=== PATIENT | female | born 1945 | race African-American/Black ===

== ENCOUNTER 2019-10-31 08:28 | Day surgery (SDC) | payer MEDICARE, OTHER ==
[~2019-10-31] VITALS: Ht 167.6 cm; Wt 65.8 kg
[2019-10-31] MEDS ORDERED: CLOP75TA33 PO (09:47)
[2019-10-31] MEDS ORDERED: HYDR100T26 MT (09:47)
[2019-10-31] MEDS ORDERED: PRED10TA MT (09:47)
[2019-10-31] MEDS ORDERED: LOSA100T32 MT (09:47)
[2019-10-31] MEDS ORDERED: PRAV40TA58 MT (09:47)
[2019-10-31] MEDS ORDERED: ASPI-1160 MT (09:47)
[2019-10-31] MEDS ORDERED: CLON-457 PO (09:47)
[2019-10-31] MEDS ORDERED: FURO20TA4 MT (09:47)
[2019-10-31] MEDS ORDERED: LABE200T28 MT (09:47)
[2019-10-31] MEDS ORDERED: NIFE-32 MT (09:47)
[2019-10-31] MEDS ORDERED: POTA20TA82 MT (09:47)
[2019-10-31] MEDS ORDERED: IOHEXOL-300 100 ML BOTTLE ONE (10:25)
[2019-10-31] MEDS ORDERED: LIDOCAINE HCL 1% 20ML VIAL (Pyxis) INJ ONE (10:25)
[2019-10-31] MEDS ORDERED: IODIXANOL 320MG/ML 100 ML BOTTLE IV ONE (10:25)
[2019-10-31] MEDS ORDERED: MIDAZOLAM HCL 2 MG/2 ML VIAL ONE (10:42)
[2019-10-31] MEDS ORDERED: FENTANYL CITRATE/PF 50MCG/ML 2ML VIAL ONE (10:42)
[2019-10-31] MEDS ORDERED: HYDRALAZINE 20MG/ML VIAL ONE (11:39)
[2019-10-31] MEDS ORDERED: LABETALOL HCL 5MG/ML VIAL 20ML IV ONE (11:46)
[2019-10-31] MEDS ORDERED: ACETAMINOPHEN 325MG TABLET PO PRN (12:15)
[2019-10-31] MEDS ORDERED: ONDANSETRON HCL 4MG/2ML INJ IV PRN (12:15)
== END 2019-10-31 18:25 | disposition home or self-care (01) ==
LOC: CCL 08:28
PROVIDERS: ATTEND Specialist
DX: I70.213 Atherosclerosis of native arteries of extremities with intermittent claudication, bilateral legs (principal); E78.5 Hyperlipidemia, unspecified; I11.9 Hypertensive heart disease without heart failure; I25.10 Atherosclerotic heart disease of native coronary artery without angina pectoris; I70.92 Chronic total occlusion of artery of the extremities; I25.2 Old myocardial infarction; J44.9 Chronic obstructive pulmonary disease, unspecified; Z79.82 Long term (current) use of aspirin; Z79.899 Other long term (current) drug therapy; Z87.891 Personal history of nicotine dependence
CPT/HCPCS: 36247; 75716; 99152; 99153; C1725; C1760; C1769; C1893; J0360; J1644; J2250; J3010; J3490; Q9967; 36246; 75710; G0500

== ENCOUNTER → 2020-08-04 | Outpatient (CLI) | payer MEDICARE, OTHER ==
[~2020-08-04] MED LIST: ASPI-1160 MT; CLON-457 PO; CLOP75TA33 PO; FURO20TA4 MT; HYDR100T26 MT; LABE200T28 MT; LOSA100T32 MT; NIFE-32 MT; POTA20TA82 MT; PRAV40TA58 MT; PRED10TA MT
== END | disposition home or self-care (01) ==
LOC: LAB 10:56
PROVIDERS: ATTEND Specialist
DX: Z01.812 Encounter for preprocedural laboratory examination (principal); R05 Cough; Z20.828 Contact with and (suspected) exposure to other viral communicable diseases
CPT/HCPCS: C9803; U0003

== ENCOUNTER → 2020-08-06 | Day surgery (SDC) | payer MEDICARE, OTHER ==
[~2020-08-06] MED LIST changes: +FENTANYL CITRATE/PF 50MCG/ML 2ML VIAL ONE; +FUROSEMIDE 20MG/2ML VIAL IVP NR; +HEPARIN SODIUM 1,000 UNIT/1ML VIAL IV ONE; +HYDRALAZINE 20MG/ML VIAL ONE; +IODIXANOL 320MG/ML 100 ML BOTTLE IV ONE; +IPRATROPIUM/ALBUTEROL 0.5-3(2.5)MG/3ML NEB HHN NR; +LABETALOL HCL 5MG/ML VIAL 20ML IV ONE; +LIDOCAINE HCL 1% 20ML VIAL (Pyxis) INJ ONE; +MIDAZOLAM HCL 2 MG/2 ML VIAL ONE; +ONDANSETRON HCL 4MG/2ML INJ IV PRN
== END | disposition home or self-care (01) ==
LOC: CCL 06:38
PROVIDERS: ATTEND Specialist
DX: I25.10 Atherosclerotic heart disease of native coronary artery without angina pectoris (principal); I25.2 Old myocardial infarction; I11.9 Hypertensive heart disease without heart failure; E78.5 Hyperlipidemia, unspecified; J44.9 Chronic obstructive pulmonary disease, unspecified; Z79.82 Long term (current) use of aspirin; Z79.899 Other long term (current) drug therapy; Z98.890 Other specified postprocedural states; Z87.891 Personal history of nicotine dependence
CPT/HCPCS: 93458; 94640; C1769; C1893; J0360; J1644; J1940; J2250; J3010; J3490; Q9967; 99152; G0500

== ENCOUNTER 2021-05-29 22:49 | Inpatient (IN) | payer MEDICARE, MEDICAID ==
[~2021-05-29] VITALS: Ht 160 cm; Wt 62.7 kg
[~2021-05-29 22:49] MED LIST changes: -FENTANYL CITRATE/PF 50MCG/ML 2ML VIAL ONE; -FUROSEMIDE 20MG/2ML VIAL IVP NR; -HEPARIN SODIUM 1,000 UNIT/1ML VIAL IV ONE; -HYDRALAZINE 20MG/ML VIAL ONE; -IODIXANOL 320MG/ML 100 ML BOTTLE IV ONE; -IPRATROPIUM/ALBUTEROL 0.5-3(2.5)MG/3ML NEB HHN NR; -LABE200T28 MT; +LABE200T9 MT; -LABETALOL HCL 5MG/ML VIAL 20ML IV ONE; -LIDOCAINE HCL 1% 20ML VIAL (Pyxis) INJ ONE; -MIDAZOLAM HCL 2 MG/2 ML VIAL ONE; -ONDANSETRON HCL 4MG/2ML INJ IV PRN
[2021-05-29 23:39] LABS: BASOPHILS % 0.4 % (0.0-2.0); CHLORIDE 97 mEq/L (98-107); EOSINOPHILS % 3.5 % (0.0-5.0); HEMOGLOBIN. 9.8 g/dL (12.0-16.0); LYMPHOCYTES % 8.1 % (20.0-50.0); MEAN CORPUSCULAR HEMOGLOBIN 34.7 pg (28.0-32.0); MEAN CORPUSCULAR VOLUME 102.6 fL (81.0-99.0); MONOCYTES % 5.4 % (2.0-8.0); NEUTROPHILS % 82.6 % (40.0-76.0); PLATELET 355 x1000/uL (130-400); RED BLOOD CELL COUNT 2.82 mill/uL (4.2-5.4); RED CELL DISTRIBUTION WIDTH 20.6 % (11.6-14.6)
[2021-05-29 23:43] LABS: ETHANOL BLOOD < 10 mg/dL
[2021-05-30] VITALS (8 sets, daily range): BP systolic 125–168; BP diastolic 72–124
[2021-05-30] MEDS: IPRATROPIUM/ALBUTEROL 0.5-3(2.5)MG/3ML NEB HHN SCH ×2 (00:24→15:50)
[2021-05-30] MEDS ORDERED: ASPIRIN 325MG EC TABLET PO ONE (04:45)
[2021-05-30] MEDS ORDERED: DEXTROSE 50% WATER 50ML SYRINGE IV ONE (08:11)
[2021-05-30] MEDS ORDERED: SODIUM BICARBONATE 8.4% 1 MEQ/ML 50ML SYR IV ONE (08:11)
[2021-05-30] MEDS ORDERED: EPINEPHRINE 0.1MG/ML (1:10,000) 10ML SYR ONE (08:11)
[2021-05-30] MEDS ORDERED: CALCIUM CHLORIDE 1GM/10ML SYR IV ONE (08:11)
[2021-05-30] MEDS ORDERED: ONDANSETRON HCL 4MG/2ML INJ IV PRN (08:15)
[2021-05-30] MEDS ORDERED: IPRATROPIUM/ALBUTEROL 0.5-3(2.5)MG/3ML NEB HHN PRN (08:15)
[2021-05-30] MEDS ORDERED: GUAIFENESIN 200MG/10ML SUGAR FREE UDC PO PRN (08:15)
[2021-05-30] MEDS ORDERED: DOCUSATE SODIUM 100MG CAPSULE PO PRN (08:15)
[2021-05-30] MEDS ORDERED: ACETAMINOPHEN 325MG TABLET PO PRN ×2 (08:15)
[2021-05-30] MEDS ORDERED: MAGNESIUM/ALUMINUM HYDROXIDE/SIMETHICONE 30ML UDC PO PRN (08:15)
[2021-05-30] MEDS ORDERED: AMLODIPINE 10MG TABLET PO SCH (09:00)
[2021-05-30] MEDS: ENOXAPARIN 40MG/0.4ML SYR SUBCUT SCH (10:16)
[2021-05-30 11:03] LABS: CLARITY URINE CLEAR (CLEAR); COLOR URINE YELLOW (YELLOW); KETONES URINE NEGATIVE (NEGATIVE); LEUKOCYTE ESTERASE URINE TRACE (NEGATIVE); NITRITE URINE NEGATIVE (NEGATIVE); OCCULT BLOOD URINE 1+ (NEGATIVE); PH URINE 5.5 (4.5-8.0); PROTEIN URINE TRACE (NEGATIVE); SPECIFIC GRAVITY URINE 1.018 (1.005-1.030)
[2021-05-30 11:18] LABS: *AMPHETAMINES SCREEN URINE NEGATIVE (NEGATIVE); *BARBITURATES SCREEN URINE NEGATIVE (NEGATIVE); *BENZODIAZEPINES SCREEN URINE NEGATIVE (NEGATIVE); *COCAINE SCREEN URINE NEGATIVE (NEGATIVE)
[2021-05-30 11:19] LABS: CANNABINOID URINE SCREEN NEGATIVE (NEGATIVE); METHADONE URINE SCREEN NEGATIVE (NEGATIVE); OPIATES URINE SCREEN PRESUMTIVE POSITIVE (NEGATIVE); PHENCYCLIDINE URINE SCREEN NEGATIVE (NEGATIVE)
[2021-05-30] MEDS: HYDRALAZINE HCL 100MG TABLET PO SCH ×2 (12:39→18:13)
[2021-05-30] MEDS: CLOPIDOGREL 75MG TABLET PO SCH (12:39)
[2021-05-30] MEDS: METHYLPREDNISOLONE SOD SUCC 40 MG/ML VIAL IV SCH ×2 (12:39→22:00)
[2021-05-30 16:22] LABS: VITAMIN B12 SERUM 880 pg/mL (211-911)
[2021-05-30 16:33] LABS: FOLIC ACID (FOLATE) SERUM > 20.00 ng/mL (>5.38)
[2021-05-30] MEDS: CLONIDINE 0.1MG TABLET PO PRN (18:13)
[2021-05-30] MEDS: LABETALOL HCL 200MG TABLET PO SCH (18:13)
[2021-05-30] MEDS: FUROSEMIDE 40MG/4ML VIAL IVP SCH (18:13)
[2021-05-30] MEDS ORDERED: MIDAZOLAM HCL 100 MG in DEXT 5% WATER 80 ML IV PRN (21:15)
[2021-05-30] MEDS ORDERED: MEPERIDINE HCL/PF 25MG/ML CPJ IV PRN (21:15)
[2021-05-30] MEDS ORDERED: FENTANYL CITRATE/PF 1,000 MCG in SODIUM CHLORIDE 0.9% 80 ML IV PRN (21:15)
[2021-05-30] MEDS ORDERED: CALCIUM GLUCONATE 2,000 MG in DEXT 5% WATER 80 ML IV PRN (21:15)
[2021-05-30] MEDS ORDERED: NOREPINEPHRINE 32 MG in DEXT 5% WATER 218 ML IV PRN (21:15)
[2021-05-30] MEDS ORDERED: ACETAMINOPHEN 650MG SUPP PR PRN ×2 (21:15)
[2021-05-30] MEDS ORDERED: KCL 20MEQ/100ML PREMIX 100 ML IV PRN (21:15)
[2021-05-30] MEDS ORDERED: MAGNESIUM 2 G PREMIX 50 ML IV PRN (21:15)
[2021-05-30] MEDS ORDERED: BUSPIRONE HCL 10MG TABLET NG PRN (21:15)
[2021-05-30] MEDS ORDERED: NOREPINEPHRINE 8 MG in DEXT 5% WATER 242 ML IV PRN (21:15)
[2021-05-30] MEDS ORDERED: NALOXONE HCL 1 MG/ML 2ML VIAL IV NR (22:33)
[2021-05-30] MEDS: MIDAZOLAM HCL 100 MG in SODIUM CHLORIDE 0.9% 100 ML IV PRN (23:00)
[2021-05-30] MEDS: FENTANYL CITRATE 2,500 MCG in SODIUM CHLORIDE 0.9% 200 ML IV PRN (23:00)
[2021-05-30 23:16] LABS: BG BASE EXCESS 8.8 mmol/L (-2.0-2.0); BG CARBOXYHEMOGLOBIN 0.7 % (0.5-1.5); BG DEOXYHEMOGLOBIN 7.4 % (0.0-5.0); BG FRACTION INSPIRED OXYGEN 100; BG HCO3 ACT 34.2 mmol/L (22.0-26.0); BG METHEMOGLOBIN 0.3 % (0.0-1.5); BG OXYGEN SATURATION 92.5 % (92.0-98.5); BG OXYHEMOGLOBIN 91.6 % (94.0-97.0); BG PCO2 51.7 mmHg (35.0-45.0); BG PH 7.439 (7.350-7.450); BG PO2 63.6 mmHg (75.0-100.0); BG SAMPLE SITE RIGHT RADIAL; BG TOTAL HEMOGLOBIN 10.5 g/dL (12.0-18.0); BG TOTAL RESPIRATORY RATE 29 b/min; BG VENT MODE VENT - AC
[2021-05-30 23:21] LABS: HEMATOCRIT. 26.1 % (36.0-48.0); HEMOGLOBIN. 8.9 g/dL (12.0-16.0); MEAN CORPUSCULAR HEMOGLOBIN 34.4 pg (28.0-32.0); MEAN CORPUSCULAR VOLUME 101.1 fL (81.0-99.0); MEAN PLATELET VOLUME 7.2 fl (7.4-10.4); PLATELET 295 x1000/uL (130-400); RED BLOOD CELL COUNT 2.58 mill/uL (4.2-5.4); RED CELL DISTRIBUTION WIDTH 20.1 % (11.6-14.6)
[2021-05-30 23:23] LABS: AMYLASE 129 IU/L (25-115)
[2021-05-30 23:24] LABS: INR 1.2; PARTIAL THROMBOPLASTIN TIME 28.8 sec (23.4-31.0); PROTHROMBIN TIME 12.9 sec (9.6-11.0)
[2021-05-30 23:26] LABS: LDL CHOLESTEROL 79 mg/dL (5-100)
[2021-05-30 23:29] LABS: HDL CHOLESTEROL 74 mg/dL (40-59)
[2021-05-31] VITALS (103 sets, daily range): BP systolic 83–181; BP diastolic 23–107
[2021-05-31] MEDS: IPRATROPIUM/ALBUTEROL 0.5-3(2.5)MG/3ML NEB HHN SCH ×5 (00:24→20:15)
[2021-05-31 00:26] LABS: CHLORIDE 99 mEq/L (98-107)
[2021-05-31 00:34] LABS: PHOSPHORUS 4.7 mg/dL (2.5-4.9)
[2021-05-31 00:37] LABS: CREATINE KINASE 50 IU/L (26-192)
[2021-05-31] MEDS: PHENYLEPHRINE 50 MG in DEXT 5% WATER 240 ML IV PRN (04:23)
[2021-05-31] MEDS ORDERED: SODIUM PHOS M BASIC D BASIC IV PRN (05:15)
[2021-05-31] MEDS ORDERED: WATER IV PRN (05:15)
[2021-05-31] MEDS ORDERED: DEXT IV PRN (05:15)
[2021-05-31 05:26] LABS: PLATELET ESTIMATE NORMAL
[2021-05-31] MEDS: METHYLPREDNISOLONE SOD SUCC 40 MG/ML VIAL IV SCH ×3 (05:33→21:46)
[2021-05-31 06:38] LABS: HEMATOCRIT. 27.1 % (36.0-48.0); HEMOGLOBIN. 9.4 g/dL (12.0-16.0); MEAN CORPUSCULAR HEMOGLOBIN 34.7 pg (28.0-32.0); MEAN CORPUSCULAR VOLUME 99.9 fL (81.0-99.0); MEAN PLATELET VOLUME 7.3 fl (7.4-10.4); PLATELET 254 x1000/uL (130-400); RED BLOOD CELL COUNT 2.71 mill/uL (4.2-5.4); RED CELL DISTRIBUTION WIDTH 20.3 % (11.6-14.6)
[2021-05-31 06:40] LABS: CHLORIDE 99 mEq/L (98-107)
[2021-05-31 06:45] LABS: PHOSPHORUS 3.2 mg/dL (2.5-4.9)
[2021-05-31 06:48] LABS: CREATINE KINASE 78 IU/L (26-192)
[2021-05-31] MEDS ORDERED: DEXTROSE 50% WATER 50ML SYRINGE IV PRN (07:45)
[2021-05-31] MEDS: BLOOD SUGAR DIAGNOSTIC STRIP TEST SCH ×4 (08:00→20:00)
[2021-05-31] MEDS: INSULIN LISPRO 100 UNITS/ML SUBCUT SCH ×4 (08:00→20:51)
[2021-05-31] MEDS ORDERED: POTASSIUM CHLORIDE INJ 40 MEQ in DEXT 5% WATER 250 ML IV NR (08:00)
[2021-05-31] MEDS ORDERED: NOREPINEPHRINE 32 MG in DEXT 5% WATER 218 ML IV PRN (08:00)
[2021-05-31] MEDS: DOPAMINE 800MG PREMIX (DOUBLE) 250 ML IV PRN (08:19)
[2021-05-31 08:20] LABS: BG BASE EXCESS 9.5 mmol/L (-2.0-2.0); BG CARBOXYHEMOGLOBIN 0.3 % (0.5-1.5); BG DEOXYHEMOGLOBIN 3.1 % (0.0-5.0); BG HCO3 ACT 34.3 mmol/L (22.0-26.0); BG METHEMOGLOBIN 0.3 % (0.0-1.5); BG OXYGEN SATURATION 96.9 % (92.0-98.5); BG OXYHEMOGLOBIN 96.3 % (94.0-97.0); BG PCO2 48.3 mmHg (35.0-45.0); BG PH 7.469 (7.350-7.450); BG PO2 88.4 mmHg (75.0-100.0); BG TOTAL HEMOGLOBIN 8.7 g/dL (12.0-18.0); BG VENT MODE VENT - P/C
[2021-05-31] MEDS: HYDRALAZINE HCL 100MG TABLET PO SCH ×3 (09:00→17:00)
[2021-05-31] MEDS: FUROSEMIDE 40MG/4ML VIAL IVP SCH (09:00)
[2021-05-31] MEDS: LOSARTAN POTASSIUM 100 MG TABLET PO SCH (09:00)
[2021-05-31] MEDS: NIFEDIPINE XL 60MG TAB PO SCH (09:00)
[2021-05-31] MEDS ORDERED: FUROSEMIDE 20MG TABLET PO SCH (09:00)
[2021-05-31] MEDS: LABETALOL HCL 200MG TABLET PO SCH ×2 (09:00→17:00)
[2021-05-31 09:05] LABS: T4 FREE 0.94 ng/dL (0.76-1.46)
[2021-05-31 09:06] LABS: PLATELET ESTIMATE NORMAL
[2021-05-31] MEDS: CLOPIDOGREL 75MG TABLET PO SCH (09:41)
[2021-05-31] MEDS: PANTOPRAZOLE SODIUM 40 MG/VIAL IV SCH (09:41)
[2021-05-31] MEDS: ENOXAPARIN 40MG/0.4ML SYR SUBCUT SCH (09:41)
[2021-05-31] MEDS: MIDAZOLAM HCL 100 MG in SODIUM CHLORIDE 0.9% 100 ML IV PRN (09:58)
[2021-05-31] MEDS: FENTANYL CITRATE 2,500 MCG in SODIUM CHLORIDE 0.9% 200 ML IV PRN (10:04)
[2021-05-31 12:49] LABS: CHLORIDE 101 mEq/L (98-107)
[2021-05-31] MEDS: CHLORHEXIDINE GLUCONATE 4% EXTERNAL USE TOP SCH (12:49)
[2021-05-31] MEDS: DEXT 5%/0.9% NACL 1,000 ML IV SCH (12:49)
[2021-05-31 12:56] LABS: PHOSPHORUS 2.7 mg/dL (2.5-4.9)
[2021-05-31 13:14] LABS: D-DIMER 8.4 mg/L FEU (<0.50); INR 1.3; PARTIAL THROMBOPLASTIN TIME 39.3 sec (23.4-31.0); PROTHROMBIN TIME 13.9 sec (9.6-11.0)
[2021-05-31] MEDS ORDERED: RIVA10TA MT (13:43)
[2021-05-31] MEDS ORDERED: FAMO20TA8 MT (13:43)
[2021-05-31] MEDS ORDERED: AMLO5TAB88 MT (13:43)
[2021-05-31] MEDS ORDERED: ATOR20TA65 MT (13:43)
[2021-05-31] MEDS ORDERED: KCL 20MEQ/100ML PREMIX 100 ML IV SCH (14:00)
[2021-05-31 20:27] LABS: CHLORIDE 102 mEq/L (98-107)
[2021-05-31 20:34] LABS: PHOSPHORUS 2.9 mg/dL (2.5-4.9)
[2021-05-31 21:50] LABS: INR 1.3; PROTHROMBIN TIME 13.3 sec (9.6-11.0)
[2021-05-31 21:50] LABS: BG BASE EXCESS 10.8 mmol/L (-2.0-2.0); BG CARBOXYHEMOGLOBIN 0.7 % (0.5-1.5); BG DEOXYHEMOGLOBIN 5.7 % (0.0-5.0); BG FRACTION INSPIRED OXYGEN 90; BG HCO3 ACT 36.3 mmol/L (22.0-26.0); BG METHEMOGLOBIN 0.2 % (0.0-1.5); BG OXYGEN SATURATION 94.2 % (92.0-98.5); BG OXYHEMOGLOBIN 93.4 % (94.0-97.0); BG PCO2 52.6 mmHg (35.0-45.0); BG PH 7.457 (7.350-7.450); BG PO2 71.2 mmHg (75.0-100.0); BG SAMPLE SITE RIGHT BRACHIAL; BG TOTAL HEMOGLOBIN 11.4 g/dL (12.0-18.0); BG TOTAL RESPIRATORY RATE 24 b/min; BG VENT MODE VENT - P/C
[2021-06-01] VITALS (122 sets, daily range): BP systolic 57–159; BP diastolic 32–129
[2021-06-01] MEDS: FENTANYL CITRATE 2,500 MCG in SODIUM CHLORIDE 0.9% 200 ML IV PRN ×2 (01:43→15:41)
[2021-06-01] MEDS: MIDAZOLAM HCL 100 MG in SODIUM CHLORIDE 0.9% 100 ML IV PRN ×2 (01:44→15:42)
[2021-06-01] MEDS: DEXT 5%/0.9% NACL 1,000 ML IV SCH ×2 (03:09→21:40)
[2021-06-01] MEDS: INSULIN LISPRO 100 UNITS/ML SUBCUT SCH ×6 (03:46→20:00)
[2021-06-01] MEDS: BLOOD SUGAR DIAGNOSTIC STRIP TEST SCH ×6 (03:46→20:00)
[2021-06-01 05:06] LABS: HEMOGLOBIN. 10.5 g/dL (12.0-16.0); MEAN CORPUSCULAR HEMOGLOBIN 34.4 pg (28.0-32.0); MEAN CORPUSCULAR VOLUME 98.9 fL (81.0-99.0); MEAN PLATELET VOLUME 7.4 fl (7.4-10.4); PLATELET 324 x1000/uL (130-400); RED BLOOD CELL COUNT 3.03 mill/uL (4.2-5.4); RED CELL DISTRIBUTION WIDTH 20.9 % (11.6-14.6)
[2021-06-01 05:18] LABS: CHLORIDE 104 mEq/L (98-107)
[2021-06-01 05:24] LABS: PHOSPHORUS 2.5 mg/dL (2.5-4.9)
[2021-06-01 05:43] LABS: INR 1.3; PARTIAL THROMBOPLASTIN TIME 31.6 sec (23.4-31.0); PROTHROMBIN TIME 13.7 sec (9.6-11.0)
[2021-06-01] MEDS: METHYLPREDNISOLONE SOD SUCC 40 MG/ML VIAL IV SCH ×2 (06:17→20:46)
[2021-06-01] MEDS: ENOXAPARIN 40MG/0.4ML SYR SUBCUT SCH (08:51)
[2021-06-01] MEDS: CLOPIDOGREL 75MG TABLET PO SCH (08:51)
[2021-06-01] MEDS: PANTOPRAZOLE SODIUM 40 MG/VIAL IV SCH (08:52)
[2021-06-01] MEDS: CHLORHEXIDINE GLUCONATE 4% EXTERNAL USE TOP SCH (08:52)
[2021-06-01] MEDS: FUROSEMIDE 40MG/4ML VIAL IVP SCH (08:52)
[2021-06-01] MEDS: NIFEDIPINE XL 60MG TAB PO SCH (09:00)
[2021-06-01] MEDS: LOSARTAN POTASSIUM 100 MG TABLET PO SCH (09:00)
[2021-06-01] MEDS: LABETALOL HCL 200MG TABLET PO SCH ×2 (09:00→16:46)
[2021-06-01] MEDS: HYDRALAZINE HCL 100MG TABLET PO SCH ×3 (09:00→16:46)
[2021-06-01] MEDS: IPRATROPIUM/ALBUTEROL 0.5-3(2.5)MG/3ML NEB HHN SCH ×3 (09:04→16:34)
[2021-06-01 09:05] LABS: BG BASE EXCESS 7.4 mmol/L (-2.0-2.0); BG DEOXYHEMOGLOBIN 9.7 % (0.0-5.0); BG FRACTION INSPIRED OXYGEN 90; BG HCO3 ACT 31.1 mmol/L (22.0-26.0); BG METHEMOGLOBIN 0.1 % (0.0-1.5); BG OXYGEN SATURATION 90.3 % (92.0-98.5); BG OXYHEMOGLOBIN 90.2 % (94.0-97.0); BG PCO2 40.4 mmHg (35.0-45.0); BG PH 7.504 (7.350-7.450); BG PO2 58.2 mmHg (75.0-100.0); BG VENT MODE VENT - P/C
[2021-06-01 09:56] LABS: HEMATOCRIT. 31.9 % (36.0-48.0); HEMOGLOBIN. 10.9 g/dL (12.0-16.0); MEAN CORPUSCULAR HEMOGLOBIN 34.2 pg (28.0-32.0); MEAN CORPUSCULAR VOLUME 100.2 fL (81.0-99.0); MEAN PLATELET VOLUME 7.5 fl (7.4-10.4); PLATELET 301 x1000/uL (130-400); RED BLOOD CELL COUNT 3.19 mill/uL (4.2-5.4); RED CELL DISTRIBUTION WIDTH 21.2 % (11.6-14.6)
[2021-06-01 10:18] LABS: INR 1.3; PROTHROMBIN TIME 13.4 sec (9.6-11.0)
[2021-06-01 10:28] LABS: CHLORIDE 105 mEq/L (98-107)
[2021-06-01] MEDS: PHENYLEPHRINE 50 MG in DEXT 5% WATER 240 ML IV PRN (10:48)
[2021-06-01] MEDS ORDERED: FLUT1DIS3 INH (12:17)
[2021-06-01] MEDS ORDERED: CEFEPIME 1,000 MG in DEXTROSE 5% WATER 50 ML IV SCH (12:45)
[2021-06-01 13:25] LABS: HEMOGLOBIN. 10.4 g/dL (12.0-16.0); MEAN CORPUSCULAR HEMOGLOBIN 33.8 pg (28.0-32.0); MEAN CORPUSCULAR VOLUME 100.9 fL (81.0-99.0); MEAN PLATELET VOLUME 7.9 fl (7.4-10.4); PLATELET 300 x1000/uL (130-400); RED BLOOD CELL COUNT 3.07 mill/uL (4.2-5.4); RED CELL DISTRIBUTION WIDTH 21.3 % (11.6-14.6)
[2021-06-01 13:45] LABS: CHLORIDE 105 mEq/L (98-107)
[2021-06-01 13:47] LABS: INR 1.3; PROTHROMBIN TIME 13.3 sec (9.6-11.0)
[2021-06-01 13:51] LABS: PHOSPHORUS 3.5 mg/dL (2.5-4.9)
[2021-06-01] MEDS: CEFEPIME 1,000 MG in DEXTROSE 5% WATER 50 ML IV SCH (14:18)
[2021-06-01] MEDS ORDERED: FUROSEMIDE 40MG/4ML VIAL IVP NR (16:30)
[2021-06-01] MEDS: VANCOMYCIN 750 MG PREMIX 150 ML IV SCH (16:51)
[2021-06-01 17:04] LABS: PLATELET ESTIMATE NORMAL
[2021-06-01 17:07] LABS: HEMATOCRIT. 27.9 % (36.0-48.0); HEMOGLOBIN. 9.5 g/dL (12.0-16.0); MEAN CORPUSCULAR HEMOGLOBIN 34.3 pg (28.0-32.0); MEAN CORPUSCULAR VOLUME 100.4 fL (81.0-99.0); MEAN PLATELET VOLUME 7.4 fl (7.4-10.4); PLATELET 279 x1000/uL (130-400); RED BLOOD CELL COUNT 2.78 mill/uL (4.2-5.4); RED CELL DISTRIBUTION WIDTH 21.8 % (11.6-14.6)
[2021-06-01 17:14] LABS: INR 1.2
[2021-06-01 17:27] LABS: CHLORIDE 105 mEq/L (98-107)
[2021-06-01 17:29] LABS: BG CARBOXYHEMOGLOBIN 0.1 % (0.5-1.5); BG DEOXYHEMOGLOBIN 9.4 % (0.0-5.0); BG FRACTION INSPIRED OXYGEN 90; BG HCO3 ACT 32.3 mmol/L (22.0-26.0); BG METHEMOGLOBIN 0.3 % (0.0-1.5); BG OXYGEN SATURATION 90.6 % (92.0-98.5); BG OXYHEMOGLOBIN 90.2 % (94.0-97.0); BG PCO2 44.1 mmHg (35.0-45.0); BG PH 7.483 (7.350-7.450); BG PO2 60.2 mmHg (75.0-100.0); BG SAMPLE SITE RIGHT RADIAL; BG VENT MODE VENT - P/C
[2021-06-01 17:34] LABS: PHOSPHORUS 3.7 mg/dL (2.5-4.9)
[2021-06-01 17:35] LABS: PLATELET ESTIMATE NORMAL
[2021-06-01 17:37] LABS: PLATELET ESTIMATE NORMAL
[2021-06-01 17:52] LABS: PLATELET ESTIMATE NORMAL
[2021-06-01] MEDS ORDERED: SODIUM CHLORIDE 0.9% 250 ML IV ONE (18:30)
[2021-06-01 23:39] LABS: HEMATOCRIT. 25.8 % (36.0-48.0); HEMOGLOBIN. 8.7 g/dL (12.0-16.0); MEAN CORPUSCULAR HEMOGLOBIN 34.2 pg (28.0-32.0); MEAN CORPUSCULAR VOLUME 101.8 fL (81.0-99.0); MEAN PLATELET VOLUME 7.7 fl (7.4-10.4); PLATELET 251 x1000/uL (130-400); RED BLOOD CELL COUNT 2.54 mill/uL (4.2-5.4); RED CELL DISTRIBUTION WIDTH 22.2 % (11.6-14.6)
[2021-06-01 23:48] LABS: INR 1.2; PARTIAL THROMBOPLASTIN TIME 32.2 sec (23.4-31.0); PROTHROMBIN TIME 12.5 sec (9.6-11.0)
[2021-06-02] VITALS (107 sets, daily range): BP systolic 75–173; BP diastolic 41–94
[2021-06-02 00:11] LABS: CHLORIDE 106 mEq/L (98-107)
[2021-06-02 00:22] LABS: PHOSPHORUS 3.8 mg/dL (2.5-4.9)
[2021-06-02] MEDS: INSULIN LISPRO 100 UNITS/ML SUBCUT SCH ×6 (04:00→20:00)
[2021-06-02] MEDS: BLOOD SUGAR DIAGNOSTIC STRIP TEST SCH ×6 (04:00→20:40)
[2021-06-02 05:48] LABS: HEMATOCRIT. 29.9 % (36.0-48.0); HEMOGLOBIN. 9.6 g/dL (12.0-16.0); MEAN CORPUSCULAR HEMOGLOBIN 34.3 pg (28.0-32.0); MEAN CORPUSCULAR VOLUME 106.7 fL (81.0-99.0); PLATELET 252 x1000/uL (130-400); RED CELL DISTRIBUTION WIDTH 22.7 % (11.6-14.6)
[2021-06-02 05:54] LABS: CHLORIDE 106 mEq/L (98-107)
[2021-06-02 05:58] LABS: INR 1.2; PARTIAL THROMBOPLASTIN TIME 27.9 sec (23.4-31.0); PROTHROMBIN TIME 12.4 sec (9.6-11.0)
[2021-06-02 06:02] LABS: CREATINE KINASE 107 IU/L (26-192); PHOSPHORUS 4.1 mg/dL (2.5-4.9)
[2021-06-02] MEDS: MIDAZOLAM HCL 100 MG in SODIUM CHLORIDE 0.9% 100 ML IV PRN (08:42)
[2021-06-02] MEDS: LABETALOL HCL 200MG TABLET PO SCH ×2 (09:00→17:00)
[2021-06-02] MEDS: NIFEDIPINE XL 60MG TAB PO SCH (09:00)
[2021-06-02] MEDS: HYDRALAZINE HCL 100MG TABLET PO SCH ×3 (09:00→17:00)
[2021-06-02] MEDS: LOSARTAN POTASSIUM 100 MG TABLET PO SCH (09:00)
[2021-06-02] MEDS: ENOXAPARIN 40MG/0.4ML SYR SUBCUT SCH ×2 (09:00→09:34)
[2021-06-02 09:25] LABS: BG BASE EXCESS 4.3 mmol/L (-2.0-2.0); BG DEOXYHEMOGLOBIN 7.5 % (0.0-5.0); BG FRACTION INSPIRED OXYGEN 90; BG HCO3 ACT 28.6 mmol/L (22.0-26.0); BG METHEMOGLOBIN 0.3 % (0.0-1.5); BG OXYGEN SATURATION 92.5 % (92.0-98.5); BG OXYHEMOGLOBIN 92.2 % (94.0-97.0); BG PCO2 41.4 mmHg (35.0-45.0); BG PH 7.457 (7.350-7.450); BG PO2 66.9 mmHg (75.0-100.0); BG SAMPLE SITE RIGHT RADIAL; BG VENT MODE VENT - P/C
[2021-06-02] MEDS: CLOPIDOGREL 75MG TABLET PO SCH (09:26)
[2021-06-02] MEDS: METHYLPREDNISOLONE SOD SUCC 40 MG/ML VIAL IV SCH ×3 (09:26→23:13)
[2021-06-02] MEDS: PANTOPRAZOLE SODIUM 40 MG/VIAL IV SCH (09:26)
[2021-06-02] MEDS: FUROSEMIDE 40MG/4ML VIAL IVP SCH (09:26)
[2021-06-02] MEDS: CEFEPIME 1,000 MG in DEXTROSE 5% WATER 50 ML IV SCH (09:26)
[2021-06-02] MEDS: IPRATROPIUM/ALBUTEROL 0.5-3(2.5)MG/3ML NEB HHN SCH ×3 (09:27→16:29)
[2021-06-02] MEDS: VANCOMYCIN 750 MG PREMIX 150 ML IV SCH (10:45)
[2021-06-02] MEDS ORDERED: FUROSEMIDE 40MG/4ML VIAL IVP ONE (10:45)
[2021-06-02] MEDS: DEXT 5%/0.9% NACL 1,000 ML IV SCH (10:45)
[2021-06-02] MEDS ORDERED: DOPAMINE 800MG PREMIX (DOUBLE) 250 ML IV ONE (10:47)
[2021-06-02] MEDS: CHLORHEXIDINE GLUCONATE 4% EXTERNAL USE TOP SCH (13:01)
[2021-06-02] MEDS: DOPAMINE 800MG PREMIX (DOUBLE) 250 ML IV PRN (13:03)
[2021-06-02 13:09] LABS: HEMATOCRIT. 27.6 % (36.0-48.0); HEMOGLOBIN. 8.8 g/dL (12.0-16.0); MEAN CORPUSCULAR HEMOGLOBIN 33.5 pg (28.0-32.0); MEAN CORPUSCULAR VOLUME 104.7 fL (81.0-99.0); MEAN PLATELET VOLUME 8.1 fl (7.4-10.4); PLATELET 232 x1000/uL (130-400); RED BLOOD CELL COUNT 2.63 mill/uL (4.2-5.4); RED CELL DISTRIBUTION WIDTH 22.6 % (11.6-14.6)
[2021-06-02 13:16] LABS: INR 1.1; PROTHROMBIN TIME 12.1 sec (9.6-11.0)
[2021-06-02 13:22] LABS: CHLORIDE 105 mEq/L (98-107)
[2021-06-02 13:37] LABS: PHOSPHORUS 4.3 mg/dL (2.5-4.9)
[2021-06-02 13:40] LABS: CREATINE KINASE 77 IU/L (26-192)
[2021-06-02 14:28] LABS: PLATELET ESTIMATE NORMAL
[2021-06-02 15:37] LABS: PLATELET ESTIMATE NORMAL
[2021-06-02] MEDS ORDERED: PHENYLEPHRINE 100 MG in DEXT 5% WATER 240 ML IV PRN (16:15)
[2021-06-02 16:21] LABS: PLATELET ESTIMATE NORMAL
[2021-06-02 21:33] LABS: HEMATOCRIT. 26.1 % (36.0-48.0); HEMOGLOBIN. 8.3 g/dL (12.0-16.0); MEAN CORPUSCULAR HEMOGLOBIN 33.5 pg (28.0-32.0); MEAN CORPUSCULAR VOLUME 104.9 fL (81.0-99.0); MEAN PLATELET VOLUME 8.1 fl (7.4-10.4); PLATELET 195 x1000/uL (130-400); RED BLOOD CELL COUNT 2.48 mill/uL (4.2-5.4); RED CELL DISTRIBUTION WIDTH 21.8 % (11.6-14.6)
[2021-06-02 21:39] LABS: INR 1.2; PARTIAL THROMBOPLASTIN TIME 32.1 sec (23.4-31.0); PROTHROMBIN TIME 12.3 sec (9.6-11.0)
[2021-06-02 21:49] LABS: CHLORIDE 106 mEq/L (98-107)
[2021-06-02 21:57] LABS: PHOSPHORUS 3.7 mg/dL (2.5-4.9)
[2021-06-02 21:59] LABS: CREATINE KINASE 57 IU/L (26-192)
[2021-06-02 22:25] LABS: PLATELET ESTIMATE NORMAL
[2021-06-03] VITALS (97 sets, daily range): BP systolic 90–145; BP diastolic 44–80
[2021-06-03] MEDS: BLOOD SUGAR DIAGNOSTIC STRIP TEST SCH ×6 (00:07→20:00)
[2021-06-03] MEDS: MIDAZOLAM HCL 100 MG in SODIUM CHLORIDE 0.9% 100 ML IV PRN ×2 (00:07→14:19)
[2021-06-03] MEDS: FENTANYL CITRATE 2,500 MCG in SODIUM CHLORIDE 0.9% 200 ML IV PRN (00:09)
[2021-06-03 00:38] LABS: HEMATOCRIT. 23.4 % (36.0-48.0); MEAN CORPUSCULAR HEMOGLOBIN 35.1 pg (28.0-32.0); MEAN CORPUSCULAR VOLUME 102.4 fL (81.0-99.0); MEAN PLATELET VOLUME 7.7 fl (7.4-10.4); PLATELET 181 x1000/uL (130-400); RED BLOOD CELL COUNT 2.29 mill/uL (4.2-5.4); RED CELL DISTRIBUTION WIDTH 20.9 % (11.6-14.6)
[2021-06-03 00:46] LABS: CHLORIDE 107 mEq/L (98-107)
[2021-06-03 00:53] LABS: PHOSPHORUS 3.5 mg/dL (2.5-4.9)
[2021-06-03 00:56] LABS: CREATINE KINASE 64 IU/L (26-192)
[2021-06-03 01:25] LABS: PLATELET ESTIMATE NORMAL
[2021-06-03 01:36] LABS: INR 1.2; PARTIAL THROMBOPLASTIN TIME 27.9 sec (23.4-31.0); PROTHROMBIN TIME 12.3 sec (9.6-11.0)
[2021-06-03] MEDS: DEXT 5%/0.9% NACL 1,000 ML IV SCH ×2 (01:42→14:18)
[2021-06-03] MEDS: INSULIN LISPRO 100 UNITS/ML SUBCUT SCH ×6 (04:00→20:00)
[2021-06-03] MEDS: METHYLPREDNISOLONE SOD SUCC 40 MG/ML VIAL IV SCH ×3 (05:13→21:46)
[2021-06-03] MEDS: VANCOMYCIN 750 MG PREMIX 150 ML IV SCH (05:13)
[2021-06-03 05:56] LABS: HEMATOCRIT. 23.6 % (36.0-48.0); HEMOGLOBIN. 8.1 g/dL (12.0-16.0); MEAN CORPUSCULAR HEMOGLOBIN 34.9 pg (28.0-32.0); MEAN PLATELET VOLUME 7.8 fl (7.4-10.4); PLATELET 177 x1000/uL (130-400); RED BLOOD CELL COUNT 2.32 mill/uL (4.2-5.4); RED CELL DISTRIBUTION WIDTH 21.5 % (11.6-14.6)
[2021-06-03 06:03] LABS: CHLORIDE 108 mEq/L (98-107)
[2021-06-03 06:09] LABS: PHOSPHORUS 3.3 mg/dL (2.5-4.9)
[2021-06-03 06:12] LABS: CREATINE KINASE 40 IU/L (26-192)
[2021-06-03 06:30] LABS: INR 1.2; PARTIAL THROMBOPLASTIN TIME 32.1 sec (23.4-31.0); PROTHROMBIN TIME 12.4 sec (9.6-11.0)
[2021-06-03 07:04] LABS: PLATELET ESTIMATE NORMAL
[2021-06-03] MEDS: NIFEDIPINE XL 60MG TAB PO SCH (09:00)
[2021-06-03] MEDS: LOSARTAN POTASSIUM 100 MG TABLET PO SCH (09:00)
[2021-06-03] MEDS: HYDRALAZINE HCL 100MG TABLET PO SCH ×3 (09:00→16:47)
[2021-06-03] MEDS: LABETALOL HCL 200MG TABLET PO SCH ×2 (09:00→16:47)
[2021-06-03 09:19] LABS: BG BASE EXCESS 3.1 mmol/L (-2.0-2.0); BG CARBOXYHEMOGLOBIN 0.2 % (0.5-1.5); BG FRACTION INSPIRED OXYGEN 90; BG HCO3 ACT 27.8 mmol/L (22.0-26.0); BG METHEMOGLOBIN 0.4 % (0.0-1.5); BG OXYHEMOGLOBIN 92.4 % (94.0-97.0); BG PCO2 42.8 mmHg (35.0-45.0); BG PO2 68.1 mmHg (75.0-100.0); BG SAMPLE SITE RIGHT RADIAL; BG TOTAL HEMOGLOBIN 8.3 g/dL (12.0-18.0); BG VENT MODE VENT - P/C
[2021-06-03] MEDS: CEFEPIME 1,000 MG in DEXTROSE 5% WATER 50 ML IV SCH (09:25)
[2021-06-03] MEDS: CLOPIDOGREL 75MG TABLET PO SCH (09:25)
[2021-06-03] MEDS: PANTOPRAZOLE SODIUM 40 MG/VIAL IV SCH (09:25)
[2021-06-03] MEDS: FUROSEMIDE 40MG/4ML VIAL IVP SCH (09:25)
[2021-06-03] MEDS: ENOXAPARIN 40MG/0.4ML SYR SUBCUT SCH (09:26)
[2021-06-03] MEDS: CHLORHEXIDINE GLUCONATE 4% EXTERNAL USE TOP SCH (09:26)
[2021-06-03] MEDS: IPRATROPIUM/ALBUTEROL 0.5-3(2.5)MG/3ML NEB HHN SCH ×4 (09:53→20:46)
[2021-06-03 13:06] LABS: HEMATOCRIT. 23.1 % (36.0-48.0); HEMOGLOBIN. 7.4 g/dL (12.0-16.0); MEAN CORPUSCULAR HEMOGLOBIN 33.7 pg (28.0-32.0); MEAN CORPUSCULAR VOLUME 105.2 fL (81.0-99.0); PLATELET 161 x1000/uL (130-400); RED CELL DISTRIBUTION WIDTH 21.2 % (11.6-14.6)
[2021-06-03 13:19] LABS: INR 1.2; PARTIAL THROMBOPLASTIN TIME 40.8 sec (23.4-31.0)
[2021-06-03] MEDS ORDERED: LIDOCAINE HCL 1% 20ML VIAL (Pyxis) INJ ONE (13:36)
[2021-06-03 13:37] LABS: CHLORIDE 110 mEq/L (98-107)
[2021-06-03 13:45] LABS: PHOSPHORUS 3.9 mg/dL (2.5-4.9)
[2021-06-03 13:47] LABS: PLATELET ESTIMATE NORMAL
[2021-06-03 13:48] LABS: CREATINE KINASE 37 IU/L (26-192)
[2021-06-03 20:57] LABS: HEMATOCRIT. 23.1 % (36.0-48.0); HEMOGLOBIN. 7.7 g/dL (12.0-16.0); MEAN CORPUSCULAR HEMOGLOBIN 34.5 pg (28.0-32.0); MEAN PLATELET VOLUME 7.6 fl (7.4-10.4); PLATELET 146 x1000/uL (130-400); RED BLOOD CELL COUNT 2.22 mill/uL (4.2-5.4); RED CELL DISTRIBUTION WIDTH 21.1 % (11.6-14.6)
[2021-06-03 21:11] LABS: INR 1.2; PARTIAL THROMBOPLASTIN TIME 34.2 sec (23.4-31.0); PROTHROMBIN TIME 12.4 sec (9.6-11.0)
[2021-06-03 21:32] LABS: CHLORIDE 111 mEq/L (98-107)
[2021-06-03 21:37] LABS: PHOSPHORUS 4.2 mg/dL (2.5-4.9)
[2021-06-03 21:40] LABS: CREATINE KINASE 45 IU/L (26-192)
[2021-06-03 22:18] LABS: PLATELET ESTIMATE NORMAL
[2021-06-04] VITALS (74 sets, daily range): BP systolic 95–163; BP diastolic 49–86
[2021-06-04] MEDS: ACETYLCYSTEINE 100MG/ML 10% VIAL 4ML INH SCH ×3 (00:06→16:07)
[2021-06-04] MEDS: IPRATROPIUM/ALBUTEROL 0.5-3(2.5)MG/3ML NEB HHN SCH ×7 (00:29→20:57)
[2021-06-04 00:59] LABS: HEMATOCRIT. 22.6 % (36.0-48.0); HEMOGLOBIN. 7.5 g/dL (12.0-16.0); MEAN CORPUSCULAR HEMOGLOBIN 34.2 pg (28.0-32.0); MEAN CORPUSCULAR VOLUME 103.1 fL (81.0-99.0); MEAN PLATELET VOLUME 7.9 fl (7.4-10.4); PLATELET 143 x1000/uL (130-400); RED BLOOD CELL COUNT 2.19 mill/uL (4.2-5.4); RED CELL DISTRIBUTION WIDTH 20.5 % (11.6-14.6)
[2021-06-04 01:09] LABS: CHLORIDE 111 mEq/L (98-107)
[2021-06-04 01:13] LABS: PHOSPHORUS 3.8 mg/dL (2.5-4.9)
[2021-06-04 01:16] LABS: CREATINE KINASE 34 IU/L (26-192)
[2021-06-04 01:18] LABS: INR 1.2; PARTIAL THROMBOPLASTIN TIME 32.6 sec (23.4-31.0); PROTHROMBIN TIME 12.5 sec (9.6-11.0)
[2021-06-04 01:53] LABS: PLATELET ESTIMATE NORMAL
[2021-06-04] MEDS: BLOOD SUGAR DIAGNOSTIC STRIP TEST SCH ×6 (04:00→20:27)
[2021-06-04] MEDS: INSULIN LISPRO 100 UNITS/ML SUBCUT SCH ×6 (04:00→20:00)
[2021-06-04] MEDS: DEXT 5%/0.9% NACL 1,000 ML IV SCH ×2 (04:24→16:51)
[2021-06-04] MEDS: METHYLPREDNISOLONE SOD SUCC 40 MG/ML VIAL IV SCH (05:10)
[2021-06-04 05:16] LABS: BG BASE EXCESS 0.6 mmol/L (-2.0-2.0); BG CARBOXYHEMOGLOBIN 0.5 % (0.5-1.5); BG DEOXYHEMOGLOBIN 15.9 % (0.0-5.0); BG FRACTION INSPIRED OXYGEN 100; BG HCO3 ACT 28.9 mmol/L (22.0-26.0); BG METHEMOGLOBIN 0.3 % (0.0-1.5); BG OXYHEMOGLOBIN 83.3 % (94.0-97.0); BG PCO2 70.7 mmHg (35.0-45.0); BG PH 7.229 (7.350-7.450); BG PO2 57.3 mmHg (75.0-100.0); BG SAMPLE SITE RIGHT RADIAL; BG TOTAL HEMOGLOBIN 8.5 g/dL (12.0-18.0); BG TOTAL RESPIRATORY RATE 29 b/min; BG VENT MODE VENT - P/C
[2021-06-04 06:14] LABS: HEMATOCRIT. 22.6 % (36.0-48.0); HEMOGLOBIN. 7.4 g/dL (12.0-16.0); MEAN CORPUSCULAR HEMOGLOBIN 34.1 pg (28.0-32.0); MEAN CORPUSCULAR VOLUME 104.1 fL (81.0-99.0); MEAN PLATELET VOLUME 8.3 fl (7.4-10.4); PLATELET 136 x1000/uL (130-400); RED BLOOD CELL COUNT 2.17 mill/uL (4.2-5.4); RED CELL DISTRIBUTION WIDTH 20.7 % (11.6-14.6)
[2021-06-04 06:23] LABS: CHLORIDE 111 mEq/L (98-107)
[2021-06-04 08:05] LABS: PLATELET ESTIMATE NORMAL
[2021-06-04] MEDS: CEFEPIME 1,000 MG in DEXTROSE 5% WATER 50 ML IV SCH (08:45)
[2021-06-04] MEDS: FUROSEMIDE 40MG/4ML VIAL IVP SCH (08:45)
[2021-06-04] MEDS: PANTOPRAZOLE SODIUM 40 MG/VIAL IV SCH (08:45)
[2021-06-04] MEDS: ENOXAPARIN 40MG/0.4ML SYR SUBCUT SCH (08:45)
[2021-06-04] MEDS: CLOPIDOGREL 75MG TABLET PO SCH (08:45)
[2021-06-04 08:49] LABS: BG BASE EXCESS -1.2 mmol/L (-2.0-2.0); BG CARBOXYHEMOGLOBIN 0.5 % (0.5-1.5); BG DEOXYHEMOGLOBIN 17.1 % (0.0-5.0); BG FRACTION INSPIRED OXYGEN 100; BG HCO3 ACT 28.5 mmol/L (22.0-26.0); BG METHEMOGLOBIN 0.1 % (0.0-1.5); BG OXYGEN SATURATION 82.8 % (92.0-98.5); BG OXYHEMOGLOBIN 82.3 % (94.0-97.0); BG PCO2 82.1 mmHg (35.0-45.0); BG PH 7.158 (7.350-7.450); BG PO2 57.1 mmHg (75.0-100.0); BG SAMPLE SITE RIGHT RADIAL; BG TOTAL HEMOGLOBIN 9.2 g/dL (12.0-18.0); BG VENT MODE VENT - P/C
[2021-06-04] MEDS: LABETALOL HCL 200MG TABLET PO SCH ×2 (09:00→16:05)
[2021-06-04] MEDS: NIFEDIPINE XL 60MG TAB PO SCH (09:00)
[2021-06-04] MEDS: HYDRALAZINE HCL 100MG TABLET PO SCH ×3 (09:00→16:05)
[2021-06-04] MEDS: LOSARTAN POTASSIUM 100 MG TABLET PO SCH (09:00)
[2021-06-04] MEDS: MIDAZOLAM HCL 100 MG in SODIUM CHLORIDE 0.9% 100 ML IV PRN (10:14)
[2021-06-04] MEDS: FENTANYL CITRATE 2,500 MCG in SODIUM CHLORIDE 0.9% 200 ML IV PRN (10:53)
[2021-06-04 11:16] LABS: BG BASE EXCESS 0.4 mmol/L (-2.0-2.0); BG CARBOXYHEMOGLOBIN 0.5 % (0.5-1.5); BG DEOXYHEMOGLOBIN 4.4 % (0.0-5.0); BG FRACTION INSPIRED OXYGEN 100; BG HCO3 ACT 25.4 mmol/L (22.0-26.0); BG OXYGEN SATURATION 95.6 % (92.0-98.5); BG OXYHEMOGLOBIN 95.1 % (94.0-97.0); BG PCO2 42.7 mmHg (35.0-45.0); BG PH 7.393 (7.350-7.450); BG PO2 81.3 mmHg (75.0-100.0); BG SAMPLE SITE RIGHT RADIAL; BG TOTAL HEMOGLOBIN 8.9 g/dL (12.0-18.0); BG VENT MODE VENT - PRVC
[2021-06-04] MEDS ORDERED: FUROSEMIDE 40MG/4ML VIAL IVP NR (16:30)
[2021-06-04] MEDS ORDERED: METHYLPREDNISOLONE SOD SUCC 40 MG/ML VIAL IV SCH (21:00)
[2021-06-04] MEDS ORDERED: FENTANYL CITRATE/PF 1,000 MCG in SODIUM CHLORIDE 0.9% 80 ML IV PRN (22:15)
[2021-06-05] VITALS (43 sets, daily range): BP systolic 118–172; BP diastolic 51–90
[2021-06-05] MEDS: BLOOD SUGAR DIAGNOSTIC STRIP TEST SCH ×6 (00:20→20:57)
[2021-06-05] MEDS: IPRATROPIUM/ALBUTEROL 0.5-3(2.5)MG/3ML NEB HHN SCH ×6 (01:24→20:55)
[2021-06-05] MEDS: ACETYLCYSTEINE 100MG/ML 10% VIAL 4ML INH SCH ×3 (01:24→16:46)
[2021-06-05] MEDS: INSULIN LISPRO 100 UNITS/ML SUBCUT SCH ×6 (04:00→20:00)
[2021-06-05] MEDS: DEXT 5%/0.9% NACL 1,000 ML IV SCH (05:57)
[2021-06-05 06:35] LABS: HEMATOCRIT. 30.2 % (36.0-48.0); MEAN CORPUSCULAR HEMOGLOBIN 32.6 pg (28.0-32.0); MEAN CORPUSCULAR VOLUME 98.7 fL (81.0-99.0); PLATELET 114 x1000/uL (130-400); RED BLOOD CELL COUNT 3.06 mill/uL (4.2-5.4); RED CELL DISTRIBUTION WIDTH 21.1 % (11.6-14.6)
[2021-06-05 06:45] LABS: CHLORIDE 113 mEq/L (98-107)
[2021-06-05] MEDS: LABETALOL HCL 200MG TABLET PO SCH ×2 (08:10→17:50)
[2021-06-05] MEDS: HYDRALAZINE HCL 100MG TABLET PO SCH ×3 (08:11→17:50)
[2021-06-05] MEDS: PANTOPRAZOLE SODIUM 40 MG/VIAL IV SCH (08:11)
[2021-06-05] MEDS: CEFEPIME 1,000 MG in DEXTROSE 5% WATER 50 ML IV SCH (08:11)
[2021-06-05] MEDS: FUROSEMIDE 40MG/4ML VIAL IVP SCH (08:12)
[2021-06-05] MEDS: MIDAZOLAM HCL 100 MG in SODIUM CHLORIDE 0.9% 80 ML IV PRN (08:38)
[2021-06-05] MEDS: CLONIDINE 0.1MG TABLET PO PRN (08:57)
[2021-06-05] MEDS ORDERED: METHYLPREDNISOLONE SOD SUCC 40 MG/ML VIAL IV SCH (09:00)
[2021-06-05 09:41] LABS: BG BASE EXCESS 0.8 mmol/L (-2.0-2.0); BG FRACTION INSPIRED OXYGEN 100; BG HCO3 ACT 27.1 mmol/L (22.0-26.0); BG PCO2 49.5 mmHg (35.0-45.0); BG PH 7.356 (7.350-7.450); BG SAMPLE SITE RIGHT RADIAL; BG VENT MODE VENT - PRVC
[2021-06-05 09:43] LABS: BG CARBOXYHEMOGLOBIN 0.7 % (0.5-1.5); BG DEOXYHEMOGLOBIN 7.9 % (0.0-5.0); BG METHEMOGLOBIN 0.4 % (0.0-1.5)
[2021-06-05] MEDS: DEXT 5%/0.45% NACL 1000ML 1,000 ML IV SCH (10:39)
[2021-06-05] MEDS ORDERED: SODIUM CHLORIDE 3% FOR INH 15ML VIAL NEB INH SCH (12:00)
[2021-06-05 12:48] LABS: PLATELET ESTIMATE DECREASED
[2021-06-05] MEDS: METHYLPREDNISOLONE SOD SUCC 40 MG/ML VIAL IV SCH (17:50)
[2021-06-05] MEDS: METOCLOPRAMIDE HCL 10MG/2ML VIAL IV SCH (17:50)
[2021-06-06] VITALS (60 sets, daily range): BP systolic 87–135; BP diastolic 46–80
[2021-06-06] MEDS: IPRATROPIUM/ALBUTEROL 0.5-3(2.5)MG/3ML NEB HHN SCH ×6 (00:48→21:01)
[2021-06-06] MEDS: ACETYLCYSTEINE 100MG/ML 10% VIAL 4ML INH SCH ×3 (00:57→16:17)
[2021-06-06] MEDS: METHYLPREDNISOLONE SOD SUCC 40 MG/ML VIAL IV SCH ×3 (01:03→16:43)
[2021-06-06] MEDS: METOCLOPRAMIDE HCL 10MG/2ML VIAL IV SCH ×4 (01:03→17:16)
[2021-06-06] MEDS: MIDAZOLAM HCL 100 MG in SODIUM CHLORIDE 0.9% 80 ML IV PRN ×2 (02:58→16:27)
[2021-06-06] MEDS: DEXT 5%/0.45% NACL 1000ML 1,000 ML IV SCH (03:06)
[2021-06-06] MEDS: BLOOD SUGAR DIAGNOSTIC STRIP TEST SCH ×6 (04:00→20:36)
[2021-06-06] MEDS: INSULIN LISPRO 100 UNITS/ML SUBCUT SCH ×6 (04:00→20:00)
[2021-06-06] MEDS: FENTANYL CITRATE 2,500 MCG in SODIUM CHLORIDE 0.9% 200 ML IV PRN (04:10)
[2021-06-06 06:17] LABS: BG BASE EXCESS -0.2 mmol/L (-2.0-2.0); BG CARBOXYHEMOGLOBIN 1.5 % (0.5-1.5); BG DEOXYHEMOGLOBIN 16.8 % (0.0-5.0); BG FRACTION INSPIRED OXYGEN 100; BG HCO3 ACT 24.8 mmol/L (22.0-26.0); BG OXYGEN SATURATION 82.9 % (92.0-98.5); BG OXYHEMOGLOBIN 81.7 % (94.0-97.0); BG PCO2 41.9 mmHg (35.0-45.0); BG PO2 49.1 mmHg (75.0-100.0); BG SAMPLE SITE LEFT BRACHIAL; BG TOTAL HEMOGLOBIN 13.6 g/dL (12.0-18.0)
[2021-06-06 06:23] LABS: HEMATOCRIT. 28.4 % (36.0-48.0); HEMOGLOBIN. 9.5 g/dL (12.0-16.0); MEAN PLATELET VOLUME 8.9 fl (7.4-10.4); PLATELET 76 x1000/uL (130-400); RED BLOOD CELL COUNT 2.87 mill/uL (4.2-5.4); RED CELL DISTRIBUTION WIDTH 20.9 % (11.6-14.6)
[2021-06-06 06:27] LABS: CHLORIDE 115 mEq/L (98-107)
[2021-06-06 06:37] LABS: PHOSPHORUS 3.4 mg/dL (2.5-4.9)
[2021-06-06] MEDS: CEFEPIME 1,000 MG in DEXTROSE 5% WATER 50 ML IV SCH (09:01)
[2021-06-06] MEDS: HYDRALAZINE HCL 100MG TABLET PO SCH ×4 (09:01→16:28)
[2021-06-06] MEDS: LABETALOL HCL 200MG TABLET PO SCH ×2 (09:01→16:37)
[2021-06-06] MEDS: PANTOPRAZOLE SODIUM 40 MG/VIAL IV SCH (10:34)
[2021-06-06] MEDS: DEXTROSE 5% WATER 1,000 ML IV SCH (10:34)
[2021-06-06 12:58] LABS: PLATELET ESTIMATE DECREASED
[2021-06-07] VITALS (94 sets, daily range): BP systolic 69–144; BP diastolic 29–84
[2021-06-07] MEDS: BLOOD SUGAR DIAGNOSTIC STRIP TEST SCH ×6 (00:22→20:00)
[2021-06-07] MEDS: METOCLOPRAMIDE HCL 10MG/2ML VIAL IV SCH ×4 (00:22→18:27)
[2021-06-07] MEDS: FENTANYL CITRATE 2,500 MCG in SODIUM CHLORIDE 0.9% 200 ML IV PRN (00:24)
[2021-06-07] MEDS: METHYLPREDNISOLONE SOD SUCC 40 MG/ML VIAL IV SCH ×3 (00:28→18:27)
[2021-06-07] MEDS: IPRATROPIUM/ALBUTEROL 0.5-3(2.5)MG/3ML NEB HHN SCH ×6 (01:40→20:07)
[2021-06-07] MEDS: ACETYLCYSTEINE 100MG/ML 10% VIAL 4ML INH SCH ×3 (01:40→16:20)
[2021-06-07] MEDS: INSULIN LISPRO 100 UNITS/ML SUBCUT SCH ×6 (04:00→20:00)
[2021-06-07 05:54] LABS: HEMATOCRIT. 29.7 % (36.0-48.0); HEMOGLOBIN. 9.6 g/dL (12.0-16.0); MEAN CORPUSCULAR HEMOGLOBIN 33.5 pg (28.0-32.0); MEAN CORPUSCULAR VOLUME 103.9 fL (81.0-99.0); MEAN PLATELET VOLUME 9.3 fl (7.4-10.4); PLATELET 52 x1000/uL (130-400); RED BLOOD CELL COUNT 2.86 mill/uL (4.2-5.4); RED CELL DISTRIBUTION WIDTH 21.5 % (11.6-14.6)
[2021-06-07 06:00] LABS: CHLORIDE 111 mEq/L (98-107)
[2021-06-07] MEDS ORDERED: FUROSEMIDE 40MG/4ML VIAL IVP SCH (06:45)
[2021-06-07] MEDS: HYDRALAZINE HCL 100MG TABLET PO SCH ×3 (08:14→16:33)
[2021-06-07] MEDS: LABETALOL HCL 200MG TABLET PO SCH ×2 (08:15→16:33)
[2021-06-07] MEDS: DEXTROSE 5% WATER 1,000 ML IV SCH (09:34)
[2021-06-07 09:49] LABS: BG BASE EXCESS -1.5 mmol/L (-2.0-2.0); BG CARBOXYHEMOGLOBIN 0.8 % (0.5-1.5); BG FRACTION INSPIRED OXYGEN 100; BG HCO3 ACT 25.6 mmol/L (22.0-26.0); BG METHEMOGLOBIN 0.4 % (0.0-1.5); BG OXYGEN SATURATION 79.8 % (92.0-98.5); BG OXYHEMOGLOBIN 78.8 % (94.0-97.0); BG PCO2 54.9 mmHg (35.0-45.0); BG PH 7.287 (7.350-7.450); BG PO2 50.7 mmHg (75.0-100.0); BG SAMPLE SITE RIGHT RADIAL; BG VENT MODE VENT - PRVC
[2021-06-07 09:59] LABS: PLATELET ESTIMATE DECREASED
[2021-06-07] MEDS ORDERED: POTASSIUM CHLORIDE 20MEQ/PACKET PO SCH (10:00)
[2021-06-07] MEDS: PANTOPRAZOLE SODIUM 40 MG/VIAL IV SCH (10:56)
[2021-06-07] MEDS: PHENYLEPHRINE 100 MG in DEXT 5% WATER 240 ML IV PRN ×2 (10:58→22:21)
[2021-06-07] MEDS ORDERED: NOREPINEPHRINE 32 MG in DEXT 5% WATER 218 ML IV PRN (17:00)
[2021-06-07] MEDS: MIDAZOLAM HCL 100 MG in SODIUM CHLORIDE 0.9% 80 ML IV PRN (21:56)
[2021-06-07] MEDS ORDERED: DOPAMINE 800MG PREMIX (DOUBLE) 250 ML IV PRN (23:00)
[2021-06-08] MEDS ORDERED: DEXTROSE 50% WATER 50ML SYRINGE IV ONE (08:09)
[2021-06-08] MEDS ORDERED: CALCIUM CHLORIDE 1GM/10ML SYR IV ONE (08:09)
[2021-06-08] MEDS ORDERED: SODIUM BICARBONATE 8.4% 1 MEQ/ML 50ML SYR IV ONE (08:09)
[2021-06-08] MEDS ORDERED: EPINEPHRINE 0.1MG/ML (1:10,000) 10ML SYR ONE (08:09)
[2021-06-08] MEDS ORDERED: FUROSEMIDE 20MG/2ML VIAL IVP SCH (09:00)
== END 2021-06-07 23:18 | DRG 870 ==
LOC: ER 22:57 → MICUSO 05-30 05:28 → 8WST 05-30 16:42 → CVICU 05-30 21:30
PROVIDERS: ADMIT Hospitalist; ATTEND Hospitalist
PROC: 5A1955Z Respiratory Ventilation, Greater than 96 Consecutive Hours (ICD-10-PCS; principal; 2021-05-30)
PROC: 0BH17EZ Insertion of Endotracheal Airway into Trachea, Via Natural or Artificial Opening (ICD-10-PCS; 2021-05-30)
PROC: 06HY33Z Insertion of Infusion Device into Lower Vein, Percutaneous Approach (ICD-10-PCS; 2021-05-30)
PROC: 5A12012 Performance of Cardiac Output, Single, Manual (ICD-10-PCS; 2021-05-30)
PROC: 4A10X4Z Monitoring of Central Nervous Electrical Activity, External Approach (ICD-10-PCS; 2021-05-31)
PROC: 02HV33Z Insertion of Infusion Device into Superior Vena Cava, Percutaneous Approach (ICD-10-PCS; 2021-06-03)
PROC: B548ZZA Ultrasonography of Superior Vena Cava, Guidance (ICD-10-PCS; 2021-06-03)
PROC: 30233N1 Transfusion of Nonautologous Red Blood Cells into Peripheral Vein, Percutaneous Approach (ICD-10-PCS; 2021-06-04)
PROC: 5A12012 Performance of Cardiac Output, Single, Manual (ICD-10-PCS; 2021-06-07)
DX: A41.59 Other Gram-negative sepsis (principal); E43 Unspecified severe protein-calorie malnutrition; R65.21 Severe sepsis with septic shock; J15.0 Pneumonia due to Klebsiella pneumoniae; G92 Toxic encephalopathy; J96.21 Acute and chronic respiratory failure with hypoxia; C34.90 Malignant neoplasm of unspecified part of unspecified bronchus or lung; I31.3 Pericardial effusion (noninflammatory); J44.0 Chronic obstructive pulmonary disease with (acute) lower respiratory infection; J44.1 Chronic obstructive pulmonary disease with (acute) exacerbation; G93.1 Anoxic brain damage, not elsewhere classified; J93.9 Pneumothorax, unspecified; E87.4 Mixed disorder of acid-base balance; N17.9 Acute kidney failure, unspecified; I50.30 Unspecified diastolic (congestive) heart failure; T40.601A Poisoning by unspecified narcotics, accidental (unintentional), initial encounter; I46.9 Cardiac arrest, cause unspecified; D53.9 Nutritional anemia, unspecified; I25.10 Atherosclerotic heart disease of native coronary artery without angina pectoris; I49.1 Atrial premature depolarization; I45.10 Unspecified right bundle-branch block; R13.10 Dysphagia, unspecified; I49.3 Ventricular premature depolarization; I07.1 Rheumatic tricuspid insufficiency; I11.0 Hypertensive heart disease with heart failure; D69.6 Thrombocytopenia, unspecified; Z99.81 Dependence on supplemental oxygen; Y92.89 Other specified places as the place of occurrence of the external cause; Z87.891 Personal history of nicotine dependence; I25.2 Old myocardial infarction; Z68.24 Body mass index [BMI] 24.0-24.9, adult; Z20.822 Contact with and (suspected) exposure to COVID-19
CPT/HCPCS: 36415; 36600; 71045; 71046; 71250; 74018; 76770; 76937; 80048; 80053; 80061; 80202; 80305; 80307; 80320; 80329; 81003; 82150; 82270; 82330; 82375; 82533; 82550; 82607; 82746; 82805; 82962; 83605; 83735; 83880; 84100; 84145; 84439; 84443; 84481; 84484; 85025; 85379; 86850; 86900; 86920; 87070; 87077; 87186; 87426; 92950; 93005; 93306; 93970; 94002; 94003; 94640; 95816; 99285; C1725; C1893; C9113; J0692; J1265; J1650; J1815; J1940; J2250; J2310; J2370; J2765; J2920; J3010; J3370; J3475; J3480; J3490; J7042; J7050; J7060; J7070; J7608; P9016; G0480